=== PATIENT | male | born 1975 | race Caucasian/White ===

== ENCOUNTER 2016-05-17 09:29 | Day surgery (SDC) | payer MEDICAID ==
[~2016-05-17 09:29] MED LIST: ACETAMINOPHEN 1000MG/100 ML PREMIX IV ONE
[2016-05-17] MEDS ORDERED: SEVOFLURANE 250 ML INH ONE (13:50)
[2016-05-17] MEDS ORDERED: MEPERIDINE 50 MG/1 ML VIAL IVP ONE (13:50)
[2016-05-17] MEDS ORDERED: KETOROLAC 30 MG/ML VIAL IVP ONE (13:50)
[2016-05-17] MEDS ORDERED: LIDOCAINE 2% MDV (20MG/ML) 20ML VIAL IV ONE (13:50)
[2016-05-17] MEDS ORDERED: MIDAZOLAM HCL 2MG/2ML VIAL IV ONE (13:50)
[2016-05-17] MEDS ORDERED: PROPOFOL 10 MG/ML VIAL IV ONE (13:50)
--- NOTE | 2016-05-17 16:48 | Operative Note ---
DATE OF SURGERY: 05/17/16 PREOPERATIVE DIAGNOSIS: CARPAL TUNNEL SYNDROME OF THE RIGHT WRIST. POSTOPERATIVE DIAGNOSIS: CARPAL TUNNEL SYNDROME OF THE RIGHT WRIST. PROCEDURE: DECOMPRESSION RIGHT MEDIAN NERVE OF THE WRIST USING 3.5 LOOP MAGNIFICATION. SURGEON: JEVON JOHNSTON D.O. REFERRING PHYSICIAN: FLAKITA MODI M.D. DESCRIPTION: This 40-year-old male was taken to the Operating Room and placed in the supine position on the operating room table where general anesthesia was induced. The right upper extremity was then elevated, prepped with Hibiclens, and draped in the usual sterile fashion. It was exsanguinated and the tourniquet inflated to 250 mmHg. A palmar incision was utilized following the hypothenar crease from the level of the base of the webspace of the thumb to the flexor crease of the wrist. Dissection was carried down through the skin and subcutaneous tissue. Hemostasis was obtained with electrocautery. The palmar fascia was divided inline with the skin incision to expose the flexor retinaculum. This was then punctured, split to its proximal margin, and then with the contents of the carpal tunnel under direct vision, the transverse carpal ligament was transected along its ulnar border and the radial flap was raised to expose the entire median nerve under the transverse carpal ligament. The recurrent motor branch of the median nerve was identified and found to be intact. Some thickening of the tenosynovium overlying the nerve was present but epineurotomy was not performed. The wound was irrigated, the tourniquet released, and hemostasis obtained with the electrocautery and the wound was closed with 6-0 nylon suture. Sterile dressings were applied with a plaster splint immobilization with the wrist in slight dorsal flexion and the thumb in an adducted position. GROSS PATHOLOGY: This patient's median nerve appeared to be normal. The patient did have some thickening of the tenosynovium overlying the nerve but epineurotomy was not performed. Jevon Johnston D.O. Date & Time cc: Flakita Modi M.D. JOB NUMBER: [id number] ANGEL
== END 2016-05-17 12:00 | disposition home or self-care (01) ==
LOC: SUR 09:29
PROVIDERS: ATTEND Orthopaedic Surgery
DX: G56.01 Carpal tunnel syndrome, right upper limb (principal)
CPT/HCPCS: 64721; 01810; J1885